=== PATIENT | female | born 1985 | race Caucasian/White ===

== ENCOUNTER 2023-07-03 09:25 | Outpatient (CLI) | payer OTHER, SELFPAY ==
[2023-07-03 10:26] LABS: Hematocrit 37.3 % (37.0-47.0); Hemoglobin 11.8 g/dL (12.0-15.0)
== END 2023-07-03 09:26 | disposition home or self-care (01) ==
LOC: ANHLAB 09:27
PROVIDERS: PCP Family Medicine; Visit Provider Obstetrics & Gynecology
DX: D64.9 Anemia, unspecified (principal)
CPT/HCPCS: 36415; 85014; 85018

== ENCOUNTER 2023-07-06 09:00 | Outpatient (NON) | payer OTHER, SELFPAY | END 2023-07-06 09:01 | disposition home or self-care (01) | PROVIDERS: PCP Family Medicine; Visit Provider Obstetrics & Gynecology | DX: R58 Hemorrhage, not elsewhere classified (principal) | CPT/HCPCS: 88305 ==

== ENCOUNTER 2023-07-06 10:30 | Day surgery (SDC) | payer OTHER, SELFPAY ==
[2023-07-02 09:44] VITALS: BMI 29.3
--- NOTE | 2023-07-06 05:58 | PM.IMHP ---
H&P: HPI History of Present Illness Date/Time: 07/06/23 05:58 Chief Complaint: Excessive heavy bleeding Narrative: 38-year-old female admitted for hysteroscopy dilatation curettage secondary to excessive heavy bleeding. Risks and benefits reviewed in great detail. She received the ACOG handouts entitled hysteroscopy as well as dilatation curettage respectively. She had all questions answered and asked to proceed PMFSH Family History Family History Father Hypertension Depression Cerebrovascular accident Alcoholism Mother Skin cancer Social History Social History Smoking packs per day: 0.5 Smoking cigarettes per day: 10.0 Years smoked: 3 Smoking pack-years: 1.50 Smoking status: Former smoker Tobacco type: cigarettes Second hand tobacco smoke exposure: Yes Smoking end date: 09/20/21 Additional smoking assessment comments: PT STATES SHE DID SMOKE 3 WEEKS AGO Alcohol intake: current Drinks per week: 2 Substance use: current Substance use type: marijuana Other substance usage details: GUMMIES 3X PER WEEK Living arrangements: alone Spiritual care concerns: No Meds Home Medications and Allergies Home Medications Medication Instructions Recorded Confirmed Type cholecalciferol (vitamin D3) 50 50 mcg PO DAILY 03/20/22 07/02/23 History mcg (2,000 unit) capsule ferrous sulfate 325 mg (65 mg 325 mg PO DAILY 03/20/22 07/02/23 History iron) tablet vitamin B12 0.5 mg-folic acid 1 mg 1 tablet PO DAILY 07/02/23 07/02/23 History tablet Allergies Allergy/AdvReac Type Severity Reaction Status Date / Time No Known Allergies Allergy Verified 07/02/23 09:42 Exam Const: General: cooperative, healthy appearing and comfortable Nutritional Appearance: average body habitus Orientation/consciousness: oriented to person, oriented to place and oriented to time Resp: Effort & Inspection: normal respiratory effort Cardio: Rate: regular rate Rhythm: regular rhythm Heart sounds: S1 normal heart sound present and S2 normal heart sound present GI: Inspection: normal to inspection : External Female Exam: normal external appearance Speculum Exam - Vagina: normal appearance of the vagina Speculum Exam - Cervix: normal appearance of the cervix Bimanual exam- vagina & uterus: enlarged Bimanual Exam- Adnexa, other: normal adnexae Assessment and Plan Assessment and plan (1) Excessive bleeding: Code(s): R58 - Hemorrhage, not elsewhere classified Status: Acute Plan hysteroscopy/dilatation curettage
--- NOTE | 2023-07-06 06:00 | WPDHPUPDATE1 ---
History and Physical Update Update Date/Time: 07/06/23 06:00 History and Physical has been reviewed, including an updated exam of the patient. There are NO changes in the patient's condition. Risks, benefits, and alternatives have been discussed and questions answered. Patient agrees to proceed with procedure.
[2023-07-06] MEDS: ACETAMINOPHEN 500 MG TABLET 1000 MG PO (10:52)
[2023-07-06 10:59] VITALS: BP 104/82; PULSE 75; RESP 16; TEMP 37; O2SAT 100; BMI 29.7
--- NOTE | 2023-07-06 11:25 | P.PNAN_ITS ---
Anes - Initial Pre Proc Eval Procedure: Operation Date: 07/06/23 12:00 Proposed Procedures p Hysteroscopy with Dilation and Curettage - Aroldo Luke MD Date/Time: 07/06/23 11:25 Surgeon: Aroldo Luke MD Pre Op Diagnosis: Irregular Bleeding Patient Data Age: 38 Gender: F Height: 1.65 m Weight: 81.2 kg Last Vital Signs Temp 37.0 C 07/06/23 10:59 Pulse 75 07/06/23 10:59 Resp 16 07/06/23 10:59 BP 104/82 07/06/23 10:59 Pulse Ox 100 07/06/23 10:59 O2 Del Method Room Air 07/06/23 10:59 Allergies Allergy/AdvReac Type Severity Reaction Status Date / Time No Known Allergies Allergy Verified 07/06/23 10:47 Home Medications Medication Instructions Recorded Confirmed Type cholecalciferol (vitamin D3) 50 50 mcg PO DAILY 03/20/22 07/06/23 History mcg (2,000 unit) capsule ferrous sulfate 325 mg (65 mg 325 mg PO DAILY 03/20/22 07/06/23 History iron) tablet vitamin B12 0.5 mg-folic acid 1 mg 1 tablet PO DAILY 07/02/23 07/06/23 History tablet hydrocodone 5 mg-acetaminophen 325 1 tablet PO Q4H PRN pain #14 tabs 07/06/23 Rx mg tablet Patient hx anesthesia problems: none Family hx anesthesia problems: none Results Review: All pre-operative results and documents have been reviewed as part of the pre- operative evaluation. [facility] Family History Family History Father Hypertension Depression Cerebrovascular accident Alcoholism Mother Skin cancer Social History Social History Smoking packs per day: 0.5 Smoking cigarettes per day: 10.0 Years smoked: 3 Smoking pack-years: 1.50 Smoking status: Former smoker Tobacco type: cigarettes Second hand tobacco smoke exposure: Yes Smoking end date: 09/20/21 Additional smoking assessment comments: PT STATES SHE DID SMOKE 3 WEEKS AGO Alcohol intake: current Drinks per week: 2 Substance use: current Substance use type: marijuana Other substance usage details: GUMMIES 3X PER WEEK Living arrangements: alone Spiritual care concerns: No Anes - Eval Final PreProcedure Day of Procedure 07/06/23 11:25 Patient weight: overweight Heart: regular rate and rhythm Lungs: clear to auscultation Airway: Mallampati scale class II Neurological: alert and oriented Last oral intake: >/= 8 hours ASA classification: II Emergent: no Anesthetic plan: proceed Anesthesia type and monitoring: general GIVS and standard monitoring Results Review: All pre-operative results and documents have been reviewed as part of the pre- operative evaluation. Informed Consent: The patient's anesthetic plan and its attendant risks and benefits were discussed with the patient/family/POA. Questions were solicited and answers provided to the satisfaction of the patient/family/POA.
[2023-07-06] MEDS: LACTATED RINGERS 1,000 ML 30 ML IV CONT (11:28)
[2023-07-06] MEDS: LIDOCAINE HCL 1% LOCAL INJ 20 ML VIAL 10 ML INFILTRATE (11:42)
--- NOTE | 2023-07-06 11:52 | W.PM.PROC2 ---
Procedure Note - Detailed Date of Procedure 07/06/23 Pre-op Diagnosis Irregular Bleeding Post-op Diagnosis Other (Irregular bleeding/ uterine polyp) Procedure Performed hysteroscopy/ polypectomy/ dilatation curettage Surgeon Aroldo Luke MD Anesthesia MAC and Local Indications 38-year-old female with excessive heavy bleeding and thickened tissue on ultrasound Findings uterus sounded 8cm. Large benign-appearing uterine polyp was present. Description of Procedure The patient was prepped draped in the normal sterile fashion placed in the dorsal lithotomy position. IV sedation weighted speculum placed in posterior fornix of vagina. Anterior cervix grasped single-tooth tenaculum. 2.5cc 1% xylocaine anesthesia placed at 2, 4, 8, 10:00 a.m. of the cervix. Uterus sounded to 8cm. Serial dilatation with fragmented out performed followed by passage of 5mm visualizing hysteroscope. Normal saline was used as visualizing medium. Uterine polyp was seen polyp forceps was passed it was removed in what appeared to be 1 piece. Uterus was then scraped over the entire 360? to a good grating sound was heard. The instruments withdrawn the patient went recovery in satisfactory condition. All sponge, needle, instrument blocks were correct. There were no immediate complications Estimated Blood Loss 5 Drains No Packing No Pathology Yes Complications No immediate complications Condition Stable Disposition PACU
[2023-07-06 11:57] VITALS: BP 97/69; PULSE 68; RESP 14; O2SAT 99
--- NOTE | 2023-07-06 12:12 | WPDANESPN ---
Anes - Prog Note Post-Op Date/Time: 07/06/23 12:12 Cardiovascular status: normal Respiratory status: normal Airway patency: baseline Mental status: baseline Post-Op hydration status: normal Vital Signs: Last Vital Signs Temp 37.0 C 07/06/23 10:59 Pulse 75 07/06/23 10:59 Resp 16 07/06/23 10:59 BP 104/82 07/06/23 10:59 Pulse Ox 100 07/06/23 10:59 O2 Del Method Room Air 07/06/23 10:59 Pain Score (VAS): 0 I/O: Intake & Output 07/05/23 07/06/23 07/06/23 23:59 07:59 15:59 Intake Total 0 Balance 0 Patient Feedback: Patient satisfied with anesthetic care.
[2023-07-06 12:25] VITALS: BP 102/78; PULSE 58; RESP 14; O2SAT 100
--- NOTE | 2023-07-06 12:26 | SUR.PHASEII ---
PT AWAKE AND ALERT. EATING AND DRINKING. TALKATIVE WITH SIG OTHER.
[2023-07-06] MEDS: ONDANSETRON INJ 4 MG/2 ML VIAL IV PUSH (12:40)
[2023-07-06 12:42] VITALS: BP 113/91; PULSE 79; RESP 16; O2SAT 99
--- NOTE | 2023-07-06 12:46 | SUR.PHASEII ---
1235: PT HAD NAUSEA. ZOFRAN GIVEN IV. IVF INFUSING. 1245; PT STATES SHE FEELS MUCH BETTER NOW. TALKATIVE AND EATING CRACKERS AGAIN.
== END 2023-07-06 13:05 | disposition home or self-care (01) ==
PROVIDERS: PCP Family Medicine; Visit Provider Obstetrics & Gynecology
PROC: 0U5B8ZZ Destruction of Endometrium, Via Natural or Artificial Opening Endoscopic (ICD-10-PCS; CPT 58563; principal; 2023-07-06 12:00)
DX: N93.8 Other specified abnormal uterine and vaginal bleeding (principal); N84.1 Polyp of cervix uteri
CPT/HCPCS: 58558

== ENCOUNTER 2025-06-11 08:07 | Emergency (ER) | payer OTHER, SELFPAY ==
[2025-06-11 08:12] VITALS: BP 115/80; PULSE 83; RESP 20; TEMP 36.7; O2SAT 100
[2025-06-11 08:25] LABS: EDSTREPNEGPOS1 Negative (Negative)
--- NOTE | 2025-06-11 08:34 | ED.URI ---
HPI - URI/Sore Throat General Chief Complaint: Upper Respiratory Infection Stated Complaint: throat Time Seen by Provider: 06/11/25 08:20 Source: patient and RN notes reviewed Mode of arrival: ambulatory Limitations: no limitations History of Present Illness HPI Narrative: 40-year-old female presents Express Care complaining of sore throat for approximately 4-5 days. Patient reports a dry nonproductive cough. Patient reports slight congestion but denies any runny nose, earache, fevers, aches, chills, nausea, vomiting, diarrhea, chest pain, difficulty breathing difficulty clearing secretions, difficulty swallowing, or any other symptoms. Patient reports her throat as razor blades every time she swallows. Patient says she has tried [id number] medications such as Tylenol, ibuprofen, throat lozenges, peppermint tea to help with the pain with minimal relief. Patient has a history of a hypothyroidism. Related Data Home Medications ?Medication ?Instructions ?Recorded ?Confirmed ?Last Taken ?Type cholecalciferol (vitamin D3) 50 50 mcg PO DAILY 03/20/22 12/08/24 07/03/23 History mcg (2,000 unit) capsule ferrous sulfate 325 mg (65 mg 325 mg PO DAILY 03/20/22 12/08/24 07/03/23 History iron) tablet vitamin B12 0.5 mg-folic acid 1 mg 1 tablet PO DAILY 07/02/23 12/08/24 07/03/23 History tablet aripiprazole 5 mg tablet mg PO 12/08/24 12/08/24 Unknown History Held on 06/11/25. Instructions: .Provider Order trazodone 50 mg tablet mg PO 12/08/24 12/08/24 Unknown History estradiol-norethindrone acet 1 tablet 06/11/25 Unknown History mg-0.5 mg tablet (Mimvey) methylphenidate HCl 18 mg mg PO 06/11/25 Unknown History tablet,extended release 24 hr Allergies Allergy/AdvReac Type Severity Reaction Status Date / Time No Known Allergies Allergy Verified 06/11/25 08:15 Review of Systems Review of Systems: CONSTITUTIONAL: Denies fever, chills, or sweats. EYES: Denies visual changes, redness, or discharge. ENT: Denies rhinorrhea, or otalgia. Positive for sore throat and congestion. CARDIOVASCULAR: Denies chest pain, palpitations, or edema. RESPIRATORY: Positive for cough. Negative for wheezing or Dyspnea. GASTROINTESTINAL: Denies abdominal pain, nausea, vomiting, or diarrhea. GENITOURINARY: Denies dysuria or hematuria. SKIN: Denies rash or itching. MUSCULOSKELETAL: Denies back pain, joint pain, or myalgia. NEUROLOGIC: Denies headache, numbness, or weakness. PSYCHIATRIC: Denies anxiety or depression. All other systems reviewed are negative, except as documented in HPI. [facility] Past Medical History Medical History Uterine polyp Family History Family History Father Hypertension Depression Cerebrovascular accident Alcoholism Mother Skin cancer Social History Social History Smoking packs per day: 0.5 Smoking cigarettes per day: 10.0 Years smoked: 3 Smoking pack-years: 1.50 Smoking status: Former smoker Tobacco type: cigarettes Second hand tobacco smoke exposure: Yes Smoking end date: 09/20/21 Additional smoking assessment comments: PT STATES SHE DID SMOKE 3 WEEKS AGO Alcohol intake: current Drinks per week: 2 Substance use: current Substance use type: marijuana Other substance usage details: GUMMIES 3X PER WEEK Living arrangements: alone Spiritual care concerns: No Comments At the time of my signature, I reviewed and agree with the nursing past medical, surgical, social, and family history. There is no relevant family history pertinent to the patient complaint. Exam Narrative: GENERAL: This is a well-nourished, well-developed adult, in no apparent distress. They are non ill-appearing, nontoxic appearing. HEAD: normocephalic, atraumatic. EYES: Sclera clear/white. Conjunctiva normal. Vision is grossly intact. Extraocular movements intact EARS: External ears normal, auditory canals clear and without drainage, TMs normal without perforation. Hearing grossly intact. NOSE: External nose normal with no obvious nasal discharge, nasal turbinates erythematous with clear drainage present, no rhinorrhea. THROAT: Mucous membranes moist, posterior pharynx erythema without swelling. Cobblestone appearing. Uvula midline. Postnasal drip present. NECK: Neck supple, non-tender without lymphadenopathy, masses or thyromegaly. CARDIOVASCULAR: Regular rate and rhythm without murmurs, gallops, or rubs. RESPIRATORY: Clear to auscultation. Breath sounds equal bilaterally. No wheezes, rales, or rhonchi. SKIN: warm, Dry, intact with no suspicious lesions or rash, good texture and turgor. NEURO: awake, alert, and oriented to person, place and time. There were no obvious focal neurologic abnormalities. EXTREMITIES: No joint tenderness, effusion, or edema noted. Course Course Emergency Course: Portions of this record may have been created with voice recognition software Level of Care: Express Care Visit Vital Signs Vital signs: Vital Signs Temperature 98.0 F 06/11/25 08:12 Pulse Rate 83 06/11/25 08:12 Respiratory Rate 20 06/11/25 08:12 Blood Pressure 115/80 06/11/25 08:12 Pulse Oximetry 100 06/11/25 08:12 Oxygen Delivery Room Air 06/11/25 08:12 Temperature 98.0 F 06/11/25 08:12 Pulse Rate 83 06/11/25 08:12 Respiratory Rate 20 06/11/25 08:12 Blood Pressure 115/80 06/11/25 08:12 Pulse Oximetry 100 06/11/25 08:12 Oxygen Delivery Room Air 06/11/25 08:12 Reviewed MDM - URI/Sore Throat MDM Narrative Medical decision making narrative: Rapid strep negative. Throat cultures pending. Symptoms likely viral in etiology. Discussed physical exam findings. Advised supportive measures and signs/symptoms to go to the ER. Pt is appropriate for outpt treatment and f/u. Differential Diagnosis Differential diagnosis: Likely upper respiratory infection, viral infection and pharyngitis Lab Data Attestation: I reviewed the patient's lab results. Labs: Lab Results 06/11/25 Range/Units 08:16 POC Grp A Strep Screen Negative (Negative) Critical Care Time Critical Care Time Critical Care Time: No Discharge Plan Discharge Clinical Impression: Pharyngitis Qualifiers: Pharyngitis/tonsillitis etiology: unspecified etiology Qualified Code(s): J02.9 - Acute pharyngitis, unspecified Patient Disposition: Home Condition: Stable Instructions: Antibiotic Form, Pharyngitis (ED) Additional Instructions: Your rapid strep swab was negative today at [facility]. You will be notified in a few days if the culture comes back positive for strep, and appropriate antibiotics will be called in for you at that time. Your symptoms are likely due to a viral illness, which is not treated with antibiotics. Viral symptoms can be present for up to 7 - 10 days. Take Tylenol or ibuprofen as needed for fever or pain. Follow the instructions on the bottle. Rest and stay hydrated. Follow up with your PCP in 3-5 days if symptoms are not improving. Go to the ER immediately if you developed difficulty breathing, nausea, vomiting, or difficulty swallowing Patient Language: Cambodian Prescriptions: No Action estradiol-norethindrone acet [Mimvey] 1-0.5 mg tablet methylphenidate HCl 18 mg tablet extended release 24hr PO aripiprazole 5 mg tablet PO trazodone 50 mg tablet PO cholecalciferol (vitamin D3) 50 mcg (2,000 unit) capsule 50 mcg PO DAILY ferrous sulfate 325 mg (65 mg iron) tablet 325 mg PO DAILY levothyroxine [Euthyrox] 25 mcg tablet 25 mcg PO DAILY Qty: 90 1RF vitamin V25-cddnk acid 0.5-1 mg Tablet 1 tablet PO DAILY Follow-up/Referrals: Alisson Ortiz DO [Primary Care Provider, [facility]] Time of Disposition: 08:33
--- OUTSIDE RECORDS SUMMARY | 2025-06-11 08:38 | XMS_ITS | Clinical Summary ---
Author Organization [facility] Address [address] [place] [address] Phone Care Team Providers Care Obstetrics Nurse Practitioner Name Role Phone Provider, None Primary Care Provider Unavailabl e Allergies No known active allergies Medications No known medications Social History Tobacco Use Types Packs/Day Years Used Date Smoking Tobacco: Never Assessed Alcohol Use Standard Drinks/Week Comments Not Currently 0 (1 standard drink = 0.6 oz pur e alcohol) Comments Unknown Sex and Gender Information Value Date Recorded Sex Assigned at Not on file Legal Sex Female 12:00 AM CDT Gender Identity Not on file Sexual Orientation Not on file Last Filed Vital Signs Vital Sign Reading Time Taken Comments Blood Pressure 101/82 11/06/2024 4:45 PM TRAFFIC ADMINISTRATOR Pulse 86 11/06/2024 4:45 PM TRAFFIC ADMINISTRATOR Temperature 36.5 C (97.7 F) 11/06/2024 6:16 AM TRAFFIC ADMINISTRATOR Respiratory Rate 16 11/06/2024 4:00 PM TRAFFIC ADMINISTRATOR Oxygen Saturation 99% 11/06/2024 4:45 PM TRAFFIC ADMINISTRATOR Inhaled Oxygen Concentration - - Weight 79.4 kg (175 lb) 11/06/2024 6:16 AM TRAFFIC ADMINISTRATOR Height 167.6 cm (5' 6) 11/06/2024 6:16 AM TRAFFIC ADMINISTRATOR Body Mass Index 28.25 11/06/2024 6:16 AM TRAFFIC ADMINISTRATOR Plan of Treatment Not on file Insurance [employer] Care Teams Obstetrics Nurse Practitioner Relationship Specialty Start Date End Date Provider, None [place] PCP - General 11/06/24
--- OUTSIDE RECORDS SUMMARY | 2025-06-11 08:38 | XMS_ITS | Encounter Summary ---
Author Organization [facility] Address [address] [place] [address] Care Team Providers Care Office Technology Instructor Name Role Phone Unavailable Primary Care Provider Unavailabl e Encounter Details Date Type Department Care Team (Late st Contact Info) Description 09/01/2018 Lab Requisition [facility] Care DermPath Lab [address] [place] [id number] Chel Meredith DO [address] [facility] [address] [place] [address] Social History Tobacco Use Types Packs/Day Years Used Date Smoking Tobacco: Never Assessed Comments Unknown Sex and Gender Information Value Date Recorded Sex Assigned at Not on file Legal Sex Female 2:31 PM CDT Gender Identity Not on file Sexual Orientation Not on file documented as of this encounter Plan of Treatment Not on file documented as of this encounter Procedures Procedure Name Priority Date/Time Associated Diagnosis Comments DERMATOPATH TECHNICAL REPORT Routine 08/30/2018 12:00 AM DREDGE ENGINEER documented in this encounter Results * DERMATOPATH TECHNICAL REPORT (08/30/2018 12:00 AM DREDGE ENGINEER) Case Report Dermatopathology Report Case: [id number] Authorizing Provider: Chel Meredith DO Collected: 08/30/2018 12:00 AM Pathologist: Nubia Horton MD Received: 09/01/2018 06:30 AM Specimens: A) - Skin, right mid paraspinal back B) - Skin, left under arm 8 5:47 PM DREDGE ENGINEER DERMATOPATHOLOGY LABORATORY Addendum 1 At the request of the diagnosing physician, the technical component for MART-1/Melan A on Specimen A and Colloidal Iron on Specimen B was performed by [facility] Dermatopathology Laboratory. 8 5:47 PM DREDGE ENGINEER DERMATOPATHOLOGY LABORATORY Addendum electronically signed by Nubia Horton MD on 09/06/2018 at 1747 DREDGE ENGINEER Clinical History A: Irritated nevus R/O atypia, irregular color. B: IDG vs GA vs gran DNY, irregular color. 5:47 PM [facility] DERMATOPATHOLOGY [facility]ORATORY Gross Description Specimen A: Received is one formalin filled container labeled with the patient's name and designated right mid paraspinal back. The specimen consists of a shave measuring [id number]. Jar 0. Specimen B: Received is one formalin filled container labeled with the patient's name and designated left under arm. The specimen consists of a punch measuring [id number], bisected. Jar 0. [facility] Dermatopathology [facility] performed the technical component only. 5:47 PM [facility] DERMATOPATHOLOGY LABORATORY Embedded Images 5:47 PM [facility] DERMATOPATHOLOGY [facility]ORATORY DISCLAIMER An external and internal positive and negative controls are appropriate for the histochemical, immunohistochemical and immunofluorescence stain(s) in this case (if any), except where stated explicitly. The performance characteristics of the stain(s) cited in this report were developed and its performance characteristic determined by the Dermatopathology Laboratory at [facility]. These tests need not be, and therefore are not, approved by the [place] Food and Drug Administration. The tests are used for clinical purposes. 5:47 PM [facility] DERMATOPATHOLOGY LABORATORY at [address] DREDGE ENGINEER Pathology/Cytology TISSUE SPECIMEN FROM SKIN / Unknown 08/30/2018 09/01/2018 6:30 AM DREDGE ENGINEER Miscellaneous samples (specimen) TISSUE SPECIMEN FROM SKIN / Unknown 08/30/2018 09/01/2018 6:30 AM DREDGE ENGINEER us Chel Meredith DO LAB - PATHOLOGY/CYTOLOGY ORDERABLES Edited Result - Final DERMATOPATHOLOGY LABORATORY [facility] - Department of Dermatology [address] [facility] [place] [address], [facility] [phone] documented in this encounter Visit Diagnoses Not on filedocumented in this encounter
--- OUTSIDE RECORDS SUMMARY | 2025-06-11 08:38 | XMS_ITS | Clinical Summary ---
Author Organization [facility] Address [address] [place] [address] Care Team Providers Care Tool Room Machinist Name Role Phone Unavailable Primary Care Provider Unavailabl e Source Comments [facility],non-owned Affiliates and Associated Physician Practices is amultiple site organization consisting of ambulatory clinics and hospital sitesin [place], [place], [place] and [place]. This disclosure is being madepursuant to the Care Everywhere program and may not contain all information available regarding this patient. Last updated 18.[facility] Social History Tobacco Use Types Packs/Day Years Used Date Smoking Tobacco: Never Assessed Comments Unknown Sex and Gender Information Value Date Recorded Sex Assigned at Not on file Legal Sex Female 2:31 PM CDT Gender Identity Not on file Sexual Orientation Not on file Plan of Treatment Health Maintenance Due Date Last Done Comments HIV SCREENING 2001 HEPATITIS C SCREENING 02/10/2004 DTAP/TDAP/TD VACCINES (1 - Tdap) 2005 HEPATITIS B VACCINE (1 of 3 - 19+ 3-dose series) 2005 PAP SMEAR 2007 HPV VACCINE (1 - 3-dose SCDM series) 2013 DEPRESSION SCREENING 09/20/2024 COVID-19 VACCINE (1 - 2023-2 5 season) 2025 INFLUENZA VACCINE (#1) 2025 ZOSTER VACCINE (1 of 2) 02/15/2036 HIB VACCINE Aged Out No longer eligi ble based on patient's age to complete this topic MENINGOCOCCAL (Group B) VACC INE SHARED DECISION-MAKING Aged Out No longer eligibl e based on patient's age to complete this topic MENINGOCOCCAL GROUPS A/C/Y/W VACCINE Aged Out No longer eligible b ased on patient's age to complete this topic PNEUMOCOCCAL VACCINE Aged Out No long er eligible based on patient's age to complete this topic Insurance [facility]
--- OUTSIDE RECORDS SUMMARY | 2025-06-11 08:38 | XMS_ITS | Clinical Summary ---
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 20 tablet 07/04/2018 Active cyclobenzaprine (FLEXERIL) 10 mg tablet Take 1 tablet (10 mg total) by mouth 3 (three) times a day as needed for muscle spasms 12 tablet 12/08/2021 Active Active Problems Problem Noted Date Diagnosed Date Adnexal mass 04/22/2017 Pelvic pain in female 04/12/2017 Assessment & Plan (04/12/2017 8:58 PM CDT): Will arrange pelvic US for pt. Screening for malignant neoplasm of cervix 04/12 Assessment & Plan (04/12/2017 8:57 PM CDT): Pap smear completed. Will follow ACOG guidelines. Body mass index (BMI) 22.0-22.9, adult 7 Assessment & Plan (04/12/2017 8:59 PM CDT): BMI normal. Pt aware of importance of diet with proper caloric intake and exercise. Immunizations Immunization Administration Dates Next Due Influenza, Trivalent, IM (MDV) 06/20/2013 Medical History Medical History Date Comments Hx Other Medical Chlymdia-resolv ed without difficulty Family History Medical History Relation Name Comments Hypertension Father Hypertension; Other Mother Alive and well; Colon cancer Paternal Grandfather Cancer -colon; Relation Name Status Comments Father Mother Alive Paternal Grandfather Social History Tobacco Use Types Packs/Day Years Used Date Smoking Tobacco: Never Alcohol Use Standard Drinks/Week Comments Yes 0 (1 standard drink = 0.6 oz pur e alcohol) Comments No Sex and Gender Information Value Date Recorded Sex Assigned at Not on file 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 Gender Identity Not on file Sexual Orientation Not on file Obstetrics History Last Filed Vital Signs Vital Sign Reading Time Taken Comments Blood Pressure 127/91 12/08/2021 8:20 AM CDT Pulse 78 12/08/2021 8:20 AM CDT Temperature 36.8 C (98.2 F) 12/08/2021 8:20 AM CDT Respiratory Rate 18 12/08/2021 8:20 AM CDT Oxygen Saturation 100% 12/08/2021 8:20 AM CDT Inhaled Oxygen Concentration - - Weight 70.3 kg (155 lb) 12/08/2021 8:20 AM CDT Height 165.1 cm (5' 5) 12/08/2021 8:20 AM CDT Body Mass Index 25.79 12/08/2021 8:20 AM CDT Plan of Treatment Health Maintenance Due Date Last Done Comments Cervical Cancer Screening 1986 Hepatitis C Screening 1986 DTaP/Tdap/Td Vaccine (1 - Tdap) 1997 Varicella Vaccines (1 of 2 - 13+ 2-dose series) 1999 Hepatitis B Screening 02/15/2004 HPV Vaccines (1 - 3-dose SCD M series) 2013 Depression Screening 04/12/2018 04/12/2017 Regular Well Visit/Exam 18-64 04/12/2018 04/12/2017 Covid-19 Vaccine (2 - 2024-2 6 season) 2025 06/19/2021 Influenza Vaccine (#1) 2025 06/20/2013 Pneumococcal vaccine <65 Aged Out No longer eligible based on patient's age to complete [place] [address] [facility] OPEN ACCESS [facility] [place] [address]
--- OUTSIDE RECORDS SUMMARY | 2025-06-11 08:38 | XMS_ITS | Encounter Summary ---
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 Name Role Phone Unavailable Primary Care Provider Unavailabl e Encounter Details Date Type Department Care Team (Late st Contact Info) Description 09/08/2018 Lab Requisition [facility] [address] [place] [id number] Chel Meredith DO [address] [address] [place] [address] Social History Tobacco Use Types Packs/Day Years [...] Procedure Name Priority Date/Time Associated Diagnosis Comments DERMPATH SLIDE CONSULT Routine 09/08/2018 12:00 AM SENIOR HADOOP DEVELOPER documented in this encounter Results * DERMPATH SLIDE CONSULT (09/08/2018 12:00 AM SENIOR HADOOP DEVELOPER) Case Report Dermatopathology Report Case: [id number] Authorizing Provider: Chel Meredith DO Collected: 09/08/2018 12:00 AM Pathologist: Ingrid Law MD Received: 09/08/2018 11:43 AM Specimen: Slide(s), Right mid paraspinal back, OSC# [id number] 8 2:21 PM SENIOR HADOOP DEVELOPER DERMATOPATHOLOGY LABORATORY Final Diagnosis Specimen A. 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 Chel Meredith, a consult will be performed on 2 slide(s) labeled [id number]. -Compound melanocytic proliferation;infla med. -Not present at sampled margin. All slides returned. Any additional sections, special stains or immunohistochemical stains performed by our laboratory will be kept here on file. 2:21 PM [facility] DERMATOPATHOLOGY [facility]ORATORY Microscopic Description Specimen A. Slide(s), Right mid paraspinal back, OSC# [id number]: This is a compound nevus. There is melanin pigment within the stratum corneum. There is architectural disorder characterized by a lentiginous proliferation of melanocytes between irregular nests of cells along the dermal-epidermal junction, highlighted by MART-1/Melan-A immunohistochemical staining received with the case. There is underlying fibroplasia of the papillary dermis. The intradermal component is bland appearance and matures with depth. There is a lymphohistiocytic infiltrate within the dermis. The dermal melanocytes are intermingled with the inflammatory cells. (Compound Roberto's Nevus or Compound Dysplastic Nevus) COMMENT: This case was also reviewed by Dr. Crystal Wilson who agrees with the diagnosis. 2:21 PM [facility] DERMATOPATHOLOGY [facility]ORATORY Disclaimer An external and internal positive and negative controls are appropriate for the histochemical, immunohistochemical and immunofluorescence stain(s) in this case (if any), except where stated explicitly. The performance characteristics of the stain(s) cited in this report were developed and its performance characteristic determined by the Dermatopathology Laboratory at [facility]. These tests need not be, and therefore are not, approved by the [place] Food and Drug Administration. The tests are used for clinical purposes. Billing Codes Specimen Charges Stain Charges 05402 1 8 2:21 PM [facility] DERMATOPATHOLOGY LABORATORY Embedded Images 2:21 PM [facility] DERMATOPATHOLOGY LABORATORY Pathology/Cytolog y SLIDE / Unknown 09/08/2018 09/08/2018 11:43 AM [facility] us Chel Meredith DO LAB - PATHOLOGY/CYTOLOGY ORDERABLES Final Result DERMATOPATHOLOGY LABORATORY [facility] - Department of Dermatology [address] [place] [address], [facility] [phone] documented in this encounter Visit Diagnoses Not on filedocumented in this encounter
--- OUTSIDE RECORDS SUMMARY | 2025-06-11 08:38 | XMS_ITS | Clinical Summary ---
Author Organization 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 Max Daily Amount: 10 mg 30 Capsule 09/02/2024 4:14 PM PASTRY FINISHER 09/01/2024 Active dextroamphetami ne-amphetamine (ADDERALL) 10 mg tablet Take 1 Tablet (10 mg) by mouth daily in the morning and 1/2 tablet at noon. 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
== END 2025-06-11 08:38 | disposition home or self-care (01) ==
PROVIDERS: PCP Family Medicine
DX: J02.9 Acute pharyngitis, unspecified (principal); Z87.891 Personal history of nicotine dependence; F12.90 Cannabis use, unspecified, uncomplicated; E03.9 Hypothyroidism, unspecified
CPT/HCPCS: 87081; 87880; 99213; G0463